=== PATIENT | male | born 1985 | race Caucasian/White ===

== ENCOUNTER → 2020-05-21 08:42 | Outpatient (CLI) | payer OTHER, SELFPAY ==
--- NOTE | 2020-05-21 | DI.MRI.S_ITS ---
PROCEDURE: MR FOOT RT WO CON INDICATIONS: Other instability, right ankle,Osteophyte, left an TECHNIQUE: Noncontrast sagittal T1 spin echo and T2 fast spin echo with fat saturation, long-axis T1 spin echo and T2 fast spin echo with fat saturation, short-axis T1 spin echo and T2 fast spin echo with fat saturation through the forefoot. COMPARISON: None. FINDINGS: Image quality: Excellent. Bones and joints: No bone marrow contusions or metatarsal stress fractures. Marrow edema is present within the lateral hallux sesamoid image 23 series 9 Moderate 1st metatarsophalangeal joint degeneration. There is mild 1st MTP joint effusion No intraosseous lesions. Soft tissues: The visualized plantar foot muscles demonstrate normal signal and bulk. Visualized flexor and extensor tendons appear intact, without tenosynovitis. The distal insertions of the peroneus brevis and longus tendons appear intact. The principal Lisfranc ligament appears intact. No soft tissue ganglion cysts . There is minimal 1st-2nd intermetatarsal bursal fluid raising the possibility of trace bursitis. Sagittal images demonstrate no evidence for plantar plate tears. There is nonspecific periarticular soft tissue edema about the 5th MTP joint. IMPRESSION: Marrow edema present within the lateral hallux sesamoid raising possibility of nonspecific sesamoiditis. Trace 1st-2nd intermetatarsal bursitis. Moderate 1st MTP joint degeneration, with small joint effusion Nonspecific periarticular soft tissue edema about the 5th MTP joint. Dictated by: Arturo Garcia M.D. on 05/21/2020 at 10:50 Approved by: Arturo Garcia M.D. on 05/21/2020 at 11:20
--- NOTE | 2020-05-21 | DI.MRI.S_ITS ---
PROCEDURE: MR ANKLE RT WO CON INDICATIONS: Other instability, right ankle,Osteophyte, left an TECHNIQUE: Noncontrast sagittal T1 spin echo and T2 fast spin echo with fat saturation, axial proton density fast spin echo and T2 fast spin echo with fat saturation, coronal T1 spin echo and T2 fast spin echo with fat saturation through the ankle/hindfoot. COMPARISON: None. FINDINGS: Image quality: Excellent. Bones and joints: No bone marrow contusions or fractures. Scattered degenerative subchondral sclerosis and spurring. No hindfoot coalitions. No osteochondral injuries of the talar dome. Trace tibiotalar joint effusion. Medial structures: Posterior tibialis intact. Flexor digitorum longus intact. There is posterior tibialis and flexor digitorum longus tenosynovitis. Flexor hallucis longus tendon intact. The posterior tibial neurovascular bundle appears normal within the tarsal tunnel, without extrinsic mass effect. Deltoid ligament sprain, primarily involving the deep fibers image 14/7. The spring ligament appears intact. Lateral structures: Anterior talofibular ligament intact although mildly thickened suggestive of low-grade chronic sprain. Calcaneofibular ligament intact. Posterior talofibular ligament intact. Anterior and posterior tibiofibular ligaments appear intact, as is the intermalleolar ligament. Tibiofibular syndesmosis is normal in width at 2 mm or less. Peroneus longus tendon appears intact. Mild peroneus brevis tendinopathy and longitudinal split tear is present. Bony peroneal tubercle and retrotrochlear prominence are normal in size. Sinus tarsi demonstrates normal fatty signal, without edema, fibrosis, or cyst formation. Anterior structures: Tibialis anterior intact. Extensor hallucis longus intact. Extensor digitorum longus tendon intact. Dorsal talonavicular ligament appears intact. Posterior and plantar structures: Minimal insertional Achilles tendinopathy Mild medial band plantar fasciitis. No abductor digiti quinti muscle atrophy to suggest [place] neuropathy. IMPRESSION: Peroneus brevis mild tendinopathy and longitudinal split tear. Posterior tibialis and flexor digitorum longus tenosynovitis. Low-grade sprain of the anterior talofibular ligament, technically age indeterminate Mild medial band plantar fasciitis. Minimal Achilles insertional tendinopathy. Dictated by: Arturo Garcia M.D. on 05/21/2020 at 10:40 Approved by: Arturo Garcia M.D. on 05/21/2020 at 10:50
== END ==
PROVIDERS: Referring Provider Podiatrist; Visit Provider Podiatrist
DX: M25.371 Other instability, right ankle (principal); S93.491A Sprain of other ligament of right ankle, initial encounter; M72.2 Plantar fascial fibromatosis; M65.871 Other synovitis and tenosynovitis, right ankle and foot; M19.071 Primary osteoarthritis, right ankle and foot; M25.571 Pain in right ankle and joints of right foot; M77.41 Metatarsalgia, right foot; M25.772 Osteophyte, left ankle; R26.2 Difficulty in walking, not elsewhere classified
CPT/HCPCS: 73718; 73721

== ENCOUNTER → 2020-09-22 09:27 | Outpatient (CLI) | payer OTHER, SELFPAY ==
--- NOTE | 2020-09-22 09:28 | DI.US.S_ITS ---
PROCEDURE: US ABDOMEN COMPLETE INDICATIONS: ESSENTIAL THROMBOCYTHEMIA TECHNIQUE: Real-time scanning was performed of the abdominal and retroperitoneal organs, with image documentation. COMPARISON: None. FINDINGS: Liver: Liver is normal in size and homogeneous in echotexture. Expected hepatopetal flow in the portal vein. Gallbladder: Nondilated. No stones or sludge. Normal gallbladder wall thickness. No pericholecystic fluid. Negative sonographic Mock's sign. Biliary ducts: Intrahepatic bile ducts are non-dilated. Extrahepatic bile duct caliber measures 3 mm. Normal is 6-7 mm or less in diameter, or 10 mm or less post-cholecystectomy. Pancreas: Not well seen. Spleen: Spleen is normal in size and homogeneous in echotexture. Kidneys: Kidneys are normal in size and echotexture. Right kidney measures 11.4 cm long; left kidney measures 13.1 cm long. No hydronephrosis or nephrolithiasis. No solid masses. Aorta: Visualized aorta is normal in caliber at less than 3 cm. Iliacs: Proximal common iliac arteries are normal in caliber at less than 2.5 cm. IVC: Intrahepatic inferior vena cava is patent. Miscellaneous: No free abdominal fluid. IMPRESSION: 1. Normal sonographic appearance of the spleen. 2. No gallstones. Dictated by: Maged Martinez M.D. on 09/22/2020 at 11:48 Approved by: Maged Martinez M.D. on 09/22/2020 at 11:50
== END ==
PROVIDERS: PCP Internal Medicine; Referring Provider Internal Medicine Hematology & Oncology; Visit Provider Internal Medicine Hematology & Oncology
DX: D47.3 Essential (hemorrhagic) thrombocythemia (principal)
CPT/HCPCS: 76700

== ENCOUNTER → 2020-10-18 13:41 | Outpatient (CLI) | payer OTHER, SELFPAY ==
[2020-10-18 15:16] LABS: COVID19 -Nasal RAPID Negative (Negative)
== END ==
PROVIDERS: PCP Internal Medicine; Visit Provider Physician Assistant
DX: Z01.812 Encounter for preprocedural laboratory examination (principal); Z20.822 Contact with and (suspected) exposure to COVID-19
CPT/HCPCS: 87635

== ENCOUNTER → 2020-10-20 14:50 | Outpatient (CLI) | payer OTHER, SELFPAY ==
--- NOTE | 2020-10-21 19:04 | DI.NM.S_ITS ---
DATE OF SERVICE: 10/21/2020 PROCEDURE: Exercise stress test. INDICATION: Chest pain, palpitation. CARDIAC STRESS: The patient underwent exercise stress test under the supervision of an attending staff. The patient walked on Sohan protocol for 10 minutes and 48 seconds, achieved 89 percent of target heart rate, 12.8 METs of workload and functional aerobic impairment positive 19 percent. Baseline blood pressure 122/60 mmHg. Peak blood pressure 166/90 mmHg. Baseline rhythm was sinus. During stress, no convincing ischemic changes seen. No significant arrhythmias seen. The patient did not have any chest pain or anginal symptoms. CONCLUSION: Exercise stress test is negative for inducible ischemia. The patient walked on Sohan protocol for 10 minutes and 48 seconds. Achieved 12.8 METs of workload. Normal hemodynamic response. Baseline electrocardiogram revealed sinus rhythm. Stress electrocardiogram did not reveal any obvious ischemia or significant arrhythmias. Overall, this is a low-risk exercise stress test. Randy Callahan - Marycarmen/kelsey doc#: [id number]/job#: [id number] dd: 10/21/2020 17:35:00 dt: 10/21/2020 18:31:00 DICTATING /COPIES TO: Rebeka De Leon MD COPIES MNE: MATT;
== END ==
PROVIDERS: PCP Internal Medicine; Referring Provider Internal Medicine Cardiovascular Disease; Visit Provider Internal Medicine Cardiovascular Disease
DX: R07.89 Other chest pain (principal); R00.0 Tachycardia, unspecified
CPT/HCPCS: 93017